=== PATIENT | male | born 1985 | race Caucasian/White ===

== ENCOUNTER 2018-07-04 14:59 | Observation (INO) | payer OTHER ==
[2018-07-04] MEDS ORDERED: Ondansetron 4 MG/2 ML SDV IVPUSH ONE (15:08)
[2018-07-04] MEDS ORDERED: Sodium Chloride 0.9% 1,000 ML IV ONE ×2 (15:08→15:44)
--- NOTE | 2018-07-04 15:09 | EDM.PDOC ---
ED HPI GENERAL MEDICAL PROBLEM - General Stated Complaint: HEAT EXPOSURE Time Seen by Provider: 07/04/18 15:08 Source of Information: Reports: Patient - History of Present Illness INITIAL COMMENTS - FREE TEXT/NARRATIVE: HISTORY AND PHYSICAL: History of present illness: [Patient was working in his backyard today, started feeling hot and weak he did soak in the child's pool, however he became lightheaded continued week went into home is diaphoretic his did put him in a cold shower and tub however symptoms persisted he presents as such No fever one episode of vomiting no chills diaphoretic on arrival no chest pain shortness of breath or palpitation no bowel or urine symptoms ] Review of systems: As per history of present illness and below otherwise all systems reviewed and negative. Past medical history: As per history of present illness and as reviewed below otherwise noncontributory. Surgical history: As per history of present illness and as reviewed below otherwise noncontributory. Social history: No reported history of drug or alcohol abuse. Family history: As per history of present illness and as reviewed below otherwise noncontributory. Physical exam: HEENT: Atraumatic, normocephalic, pupils reactive, negative for conjunctival pallor or scleral icterus, mucous membranes moist, throat clear, neck supple, nontender, trachea midline. Lungs: Clear to auscultation, breath sounds equal bilaterally, chest nontender. Heart: S1S2, regular, negative for clicks, rubs, or JVD. Abdomen: Soft, nondistended, nontender. Negative for masses or hepatosplenomegaly. Negative for costovertebral tenderness. Pelvis: Stable nontender. Genitourinary: Deferred. Rectal: Deferred. Extremities: Atraumatic, negative for cords or calf pain. Neurovascular unremarkable. Neuro: Awake, alert, oriented. Cranial nerves II through XII unremarkable. Cerebellum unremarkable. Motor and sensory unremarkable throughout. Exam nonfocal. Diagnostics: [CBC CMP troponin CPK CK-MB EKG Chest 1 view ]CT abdomen pelvis with contrast Therapeutics: normal saline bolus ]Normal saline with 40 mEq of potassium Impression: HypotensionLine hypokalemia Heat exhaustion versus heatstroke Rule out sepsis Definitive disposition and diagnosis as appropriate pending reevaluation and review of above. - Related Data Allergies Allergy/AdvReac Type Severity Reaction Status Date / Time No Known Allergies Allergy Verified 07/04/18 15:17 Home Meds: Home Meds . [No Known Home Meds] 07/04/18 [History] PARoxetine [Paxil] 10 mg PO DAILY 07/04/18 [History] ED ROS GENERAL - Review of Systems Review Of Systems: See Below ED EXAM, GENERAL - Physical Exam Exam: See Below Course - Vital Signs Last Recorded V/S: Last Vital Signs Temp 95.9 F 07/04/18 15:13 Pulse 53 L 07/04/18 15:42 Resp 16 07/04/18 15:42 BP 109/60 07/04/18 15:42 Pulse Ox 99 07/04/18 15:42 - Orders/Labs/Meds Orders: Active Orders 24 hr Category Date Time Status EKG Documentation Completion [RC] STAT Care 07/04/18 15:08 Active Abdomen Pelvis w Cont [CT] Stat Exams 07/04/18 15:28 Taken Chest 1V Frontal [CR] Stat Exams 07/04/18 15:08 Taken CULTURE BLOOD [BC] Stat Lab 07/04/18 15:20 Received CULTURE BLOOD [BC] Stat Lab 07/04/18 15:30 Received CULTURE URINE [RM] Stat Lab 07/04/18 15:11 Ordered DRUG SCREEN, URINE [URCHEM] Stat Lab 07/04/18 15:08 Ordered UA W/MICROSCOPIC [URIN] Stat Lab 07/04/18 15:07 Ordered Sodium Chloride 0.9% with KCl [Normal Saline with 40 Med 07/04/18 16:15 Active mEq KCl] 1,000 ml IV ASDIRECTED Blood Culture x2 Reflex Set [OM.PC] Stat Oth 07/04/18 15:11 Ordered Medication Orders Potassium Chloride/Sodium Chloride (Normal Saline With 40 Meq Kcl) 1,000 mls @ 150 mls/hr IV ASDIRECTED [facility] Last Admin: 07/04/18 16:17 Dose: 150 mls/hr Labs: Laboratory Tests 07/04/18 07/04/18 07/04/18 Range/Units 15:00 15:00 15:20 WBC 14.82 H (4.0-11.0) K/uL RBC 5.05 (4.50-5.90) M/uL Hgb 14.8 (13.0-17.0) g/dL Hct 42.8 (38.0-50.0) % MCV 84.8 (80.0-98.0) fL MCH 29.3 (27.0-32.0) pg MCHC 34.6 (31.0-37.0) g/dL RDW Std Deviation 39.7 (28.0-62.0) fl RDW Coeff of Rani 13 (11.0-15.0) % Plt Count 350 (150-400) K/uL MPV 9.40 (7.40-12.00) fL Neut % (Auto) 44.4 L (48.0-80.0) % Lymph % (Auto) 42.7 H (16.0-40.0) % [place] % (Auto) 8.8 (0.0-15.0) % Eos % (Auto) 3.8 (0.0-7.0) % Baso % (Auto) 0.3 (0.0-1.5) % Neut # (Auto) 6.6 H (1.4-5.7) K/uL Lymph # (Auto) 6.3 H (0.6-2.4) K/uL [place] # (Auto) 1.3 H (0.0-0.8) K/uL Eos # (Auto) 0.6 (0.0-0.7) K/uL Baso # (Auto) 0.0 (0.0-0.1) K/uL Nucleated RBC % 0.0 /100WBC Nucleated RBCs # 0 K/uL Lactate 5.6 H (0.20-2.00) mmol/L Sodium 143 (136-148) mmol/L Potassium 2.6 L (3.5-5.1) mmol/L Chloride 104 (98-107) mmol/L Carbon Dioxide 20.0 L (21.0-32.0) mmol/L BUN 12 (7.0-18.0) mg/dL Creatinine 1.1 (0.8-1.3) mg/dL Est Cr Clr Drug Dosing 107.78 mL/min Estimated GFR (MDRD) > 60.0 ml/min Glucose 160 H (74-106) mg/dL Calcium 9.3 (8.5-10.1) mg/dL Total Bilirubin 0.2 (0.2-1.0) mg/dL AST 16 (15-37) IU/L ALT 24 (14-63) IU/L Alkaline Phosphatase 62 (46-116) U/L Creatine Kinase 202 (26-308) U/L CK-MB (CK-2) 2.8 (0-3.6) ng/mL Troponin I < 0.050 (0.000-0.056) ng/mL Total Protein 8.2 (6.4-8.2) g/dL Albumin 4.0 (3.4-5.0) g/dL Globulin 4.2 H (2.0-3.5) g/dL Albumin/Globulin Ratio 1.0 L (1.3-2.8) Lipase 151 (73-393) U/L Meds: Medications Generic Name Dose Route Start Last Admin Trade Name Freq PRN Reason Stop Dose Admin Potassium Chloride/Sodium Chloride 1,000 mls @ 150 mls/hr 07/04/18 16:15 11/09 16:17 Normal Saline With 40 Meq Kcl IV 150 mls/hr ASDIRECTED [facility] Administration Discontinued Medications Generic Name Dose Route Start Last Admin Trade Name Freq PRN Reason Stop Dose Admin Sodium Chloride 1,000 mls @ 999 mls/hr 07/04/18 15:08 07/04/18 16:07 Normal Saline IV 07/04/18 16:08 999 mls/hr STAT ONE Infusion Piperacillin Sod/Tazobactam 50 mls @ 100 mls/hr 07/04/18 15:13 07/04/18 15:32 Sod 3.375 gm/ Sodium Chloride IV 07/04/18 15:42 100 mls/hr ONETIME ONE Administration Sodium Chloride 1,000 mls @ 999 mls/hr 07/04/18 15:44 07/04/18 17:02 Normal Saline IV 07/04/18 16:44 Not Given .Bolus ONE Iopamidol 100 ml 07/04/18 17:03 07/04/18 17:04 Isovue Multipack-370 (76%) IVPUSH 07/04/18 17:04 100 ml ONETIME ONE Administration Ondansetron HCl 8 mg 07/04/18 15:08 07/04/18 15:13 Zofran IVPUSH 07/04/18 15:09 8 mg ONETIME ONE Administration Departure - Departure Time of Disposition: 17:47 Disposition: Refer to Observation Condition: Fair Clinical Impression: Hypotension, Exhaustion due to exposure - Discharge Information Referrals: PCP,None [Primary Care Provider] - - My Orders Last 24 Hours: My Active Orders 07/04/18 15:07 UA W/MICROSCOPIC [URIN] Stat 07/04/18 15:08 EKG Documentation Completion [RC] STAT Chest 1V Frontal [CR] Stat DRUG SCREEN, URINE [URCHEM] Stat 07/04/18 15:11 CULTURE URINE [RM] Stat Blood Culture x2 Reflex Set [OM.PC] Stat 07/04/18 15:20 CULTURE BLOOD [BC] Stat 07/04/18 15:28 Abdomen Pelvis w Cont [CT] Stat 07/04/18 15:30 CULTURE BLOOD [BC] Stat 07/04/18 16:15 Sodium Chloride 0.9% with KCl [Normal Saline with 40 mEq KCl] 1,000 ml IV ASDIRECTED - Assessment/Plan Last 24 Hours: My Active Orders 07/04/18 15:07 UA W/MICROSCOPIC [URIN] Stat 07/04/18 15:08 EKG Documentation Completion [RC] STAT Chest 1V Frontal [CR] Stat DRUG SCREEN, URINE [URCHEM] Stat 07/04/18 15:11 CULTURE URINE [RM] Stat Blood Culture x2 Reflex Set [OM.PC] Stat 07/04/18 15:20 CULTURE BLOOD [BC] Stat 07/04/18 15:28 Abdomen Pelvis w Cont [CT] Stat 07/04/18 15:30 CULTURE BLOOD [BC] Stat 07/04/18 16:15 Sodium Chloride 0.9% with KCl [Normal Saline with 40 mEq KCl] 1,000 ml IV ASDIRECTED
[2018-07-04] MEDS ORDERED: Piperacillin/Tazobactam 3.375 GM in Sodium Chloride 0.9% 50 ML IV ONE (15:13)
[2018-07-04 15:43] LABS: CHLORIDE,CL 104 mmol/L (98-107); SODIUM,NA 143 mmol/L (136-148)
[2018-07-04] MEDS: Sodium Chloride 0.9% with KCl 1,000 ML IV SCH ×2 (16:17→23:23)
[2018-07-04] MEDS ORDERED: Iopamidol 755 MG/ML 200 ML Multipack Bottle IVPUSH ONE (17:03)
[2018-07-04] MEDS ORDERED: Morphine 10 MG/ML Syringe IVPUSH PRN (17:51)
[2018-07-04] MEDS ORDERED: Sodium Chloride 0.9% 10 ML Syringe FLUSH PRN (17:51)
[2018-07-04] MEDS ORDERED: Acetaminophen 325 MG Tab PO PRN (17:51)
[2018-07-04] MEDS ORDERED: Sodium Chloride 0.9% 2.5 ML Syringe FLUSH PRN (17:51)
[2018-07-04] MEDS ORDERED: Ondansetron 4 MG/2 ML SDV IVPUSH PRN (17:51)
[2018-07-04] MEDS ORDERED: Enoxaparin 40 MG/0.4 ML Syringe SUBCUT SCH (18:00)
--- NOTE | 2018-07-04 18:00 | PCM.HP ---
H&P History of Present Illness - General Date of Service: 07/04/18 Admit Problem/Dx: Admission Diagnosis/Problem Admission Diagnosis/Problem Hypotension - History of Present Illness Initial Comments - Free Text/Narative: 32-year-old male being admitted secondary to heat exhaustion versus possible sepsis. Patient states that him and his girlfriend were in the backyard in the pool, he was drinking alcohol and after some time he told his he was starting to feel lightheaded, dizzy, stating that he had heart palpitations and as if he had a numbness and tingling in his extremities. Patient has significant other 1 in side and he took a cold shower which did not alleviate his symptoms that he presented to the ED where he was found to be hypotensive, with elevated lactic acid level, a hypokalemia of 2.6 with no elevation of creatinine kinase, and a leukocytosis. Chest x-ray and CT abdomen are both negative, we are waiting on the UA results. - Related Data Allergies/Adverse Reactions: Allergies Allergy/AdvReac Type Severity Reaction Status Date / Time No Known Allergies Allergy Verified 07/04/18 15:17 Home Medications: Home Meds . [No Known Home Meds] 07/04/18 [History] PARoxetine [Paxil] 10 mg PO DAILY 07/04/18 [History] Past Medical History Psychiatric History: Reports: Anxiety Social & Family History - Family History Family Medical History: Noncontributory - Tobacco Use Smoking Status *Q: Never Smoker - Caffeine Use Caffeine Use: Reports: Coffee - Recreational Drug Use Recreational Drug Use: No H&P Review of Systems - Review of Systems: Review Of Systems: ROS reveals no pertinent complaints other than HPI. Exam - Exam Exam: See Below - Vital Signs Vital Signs: Last Vital Signs Temp 35.5 C 07/04/18 15:13 Pulse 53 L 07/04/18 15:42 Resp 16 07/04/18 15:42 BP 109/60 07/04/18 15:42 Pulse Ox 99 07/04/18 15:42 Weight: 126.9 kg - Exam General: Alert, Oriented, Mild Distress Lungs: Clear to Auscultation, Normal Respiratory Effort, Other (Shallow breaths) Extremities: Normal Inspection - Patient Data Lab Results Last 24 hrs: Laboratory Results - last 24 hr 07/04/18 07/04/18 07/04/18 Range/Units 15:00 15:00 15:20 WBC 14.82 H (4.0-11.0) K/uL RBC 5.05 (4.50-5.90) M/uL Hgb 14.8 (13.0-17.0) g/dL Hct 42.8 (38.0-50.0) % MCV 84.8 (80.0-98.0) fL MCH 29.3 (27.0-32.0) pg MCHC 34.6 (31.0-37.0) g/dL RDW Std Deviation 39.7 (28.0-62.0) fl RDW Coeff of Rani 13 (11.0-15.0) % Plt Count 350 (150-400) K/uL MPV 9.40 (7.40-12.00) fL Neut % (Auto) 44.4 L (48.0-80.0) % Lymph % (Auto) 42.7 H (16.0-40.0) % [place] % (Auto) 8.8 (0.0-15.0) % Eos % (Auto) 3.8 (0.0-7.0) % Baso % (Auto) 0.3 (0.0-1.5) % Neut # (Auto) 6.6 H (1.4-5.7) K/uL Lymph # (Auto) 6.3 H (0.6-2.4) K/uL [place] # (Auto) 1.3 H (0.0-0.8) K/uL Eos # (Auto) 0.6 (0.0-0.7) K/uL Baso # (Auto) 0.0 (0.0-0.1) K/uL Nucleated RBC % 0.0 /100WBC Nucleated RBCs # 0 K/uL Lactate 5.6 H (0.20-2.00) mmol/L Sodium 143 (136-148) mmol/L Potassium 2.6 L (3.5-5.1) mmol/L Chloride 104 (98-107) mmol/L Carbon Dioxide 20.0 L (21.0-32.0) mmol/L BUN 12 (7.0-18.0) mg/dL Creatinine 1.1 (0.8-1.3) mg/dL Est Cr Clr Drug Dosing 107.78 mL/min Estimated GFR (MDRD) > 60.0 ml/min Glucose 160 H (74-106) mg/dL Calcium 9.3 (8.5-10.1) mg/dL Total Bilirubin 0.2 (0.2-1.0) mg/dL AST 16 (15-37) IU/L ALT 24 (14-63) IU/L Alkaline Phosphatase 62 (46-116) U/L Creatine Kinase 202 (26-308) U/L CK-MB (CK-2) 2.8 (0-3.6) ng/mL Troponin I < 0.050 (0.000-0.056) ng/mL Total Protein 8.2 (6.4-8.2) g/dL Albumin 4.0 (3.4-5.0) g/dL Globulin 4.2 H (2.0-3.5) g/dL Albumin/Globulin Ratio 1.0 L (1.3-2.8) Lipase 151 (73-393) U/L Result Diagrams: 07/04/18 15:00 07/04/18 15:00 - Problem List (1) UTI (urinary tract infection) SNOMED Code(s): 49435371 ICD Code: N39.0 - URINARY TRACT INFECTION, SITE NOT SPECIFIED Status: Acute Current Visit: Yes (2) Exhaustion due to exposure SNOMED Code(s): 31096468 ICD Code: T73.2XXA - EXHAUSTION DUE TO EXPOSURE, INITIAL ENCOUNTER Status: Acute Current Visit: Yes (3) Hypotension SNOMED Code(s): 86349136 ICD Code: I95.9 - HYPOTENSION, UNSPECIFIED Status: Acute Current Visit: Yes Problem List Initiated/Reviewed/Updated: Yes Orders Last 24hrs: Active Orders 24 hr Category Date Time Status Admission Status [Patient Status] [ADT] Stat ADT 07/04/18 17:48 Active Cardiac Monitoring [RC] CONTINUOUS Care 07/04/18 17:51 Ordered EKG Documentation Completion [RC] STAT Care 07/04/18 15:08 Active Height and Weight [RC] UPON Care 07/04/18 17:51 Ordered Intake and Output [RC] QSHIFT Care 07/04/18 17:51 Ordered Oxygen Therapy [RC] PRN Care 07/04/18 17:51 Ordered Up With Assistance [RC] ASDIRECTED Care 07/04/18 17:51 Ordered VTE/DVT Education [RC] PER UNIT ROUTINE Care 07/04/18 17:51 Ordered Vital Signs [RC] Q4H Care 07/04/18 17:51 Ordered Regular Diet [DIET] Diet 07/04/18 Breakfast Ordered Abdomen Pelvis w Cont [CT] Stat Exams 07/04/18 15:28 Taken Chest 1V Frontal [CR] Stat Exams 07/04/18 15:08 Taken CBC WITH AUTO DIFF [HEME] AM Lab 07/05/18 05:11 Ordered COMPREHENSIVE METABOLIC PN,CMP [CHEM] AM Lab 07/05/18 05:11 Ordered CULTURE BLOOD [BC] Stat Lab 07/04/18 15:20 Received CULTURE BLOOD [BC] Stat Lab 07/04/18 15:30 Received CULTURE URINE [RM] Stat Lab 07/04/18 15:11 Ordered DRUG SCREEN, URINE [URCHEM] Stat Lab 07/04/18 15:08 Ordered UA W/MICROSCOPIC [URIN] Stat Lab 07/04/18 15:07 Ordered Acetaminophen [Tylenol] Med 07/04/18 17:51 Ordered 650 mg PO Q4H PRN Enoxaparin [Lovenox] Med 07/04/18 18:00 Ordered 40 mg SUBCUT Q24H Morphine Med 07/04/18 17:51 Ordered 2 mg IVPUSH Q2H PRN Ondansetron [Zofran] Med 07/04/18 17:51 Ordered 4 mg IVPUSH Q4H PRN Potassium Chloride 40 meq Med 07/04/18 18:00 Ordered Sodium Chloride 0.9% [Normal Saline] 1,000 ml IV ASDIRECTED Sodium Chloride 0.9% [Saline Flush] Med 07/04/18 17:51 Ordered 10 ml FLUSH ASDIRECTED PRN Sodium Chloride 0.9% [Saline Flush] Med 07/04/18 17:51 Ordered 2.5 ml FLUSH ASDIRECTED PRN Sodium Chloride 0.9% with KCl [Normal Saline with 40 Med 07/04/18 16:15 Active mEq KCl] 1,000 ml IV ASDIRECTED Blood Culture x2 Reflex Set [OM.PC] Stat Oth 07/04/18 15:11 Ordered Peripheral IV Insertion Adult [OM.PC] Routine Oth 07/04/18 17:51 Ordered Saline Lock Insert [OM.PC] Routine Oth 07/04/18 17:51 Ordered Sequential Compression Device [OM.PC] Per Unit Routine Oth 07/04/18 17:51 Ordered Resuscitation Status Routine Resus Stat 07/04/18 17:51 Ordered Medication Orders Potassium Chloride/Sodium Chloride (Normal Saline With 40 Meq Kcl) 1,000 mls @ 150 mls/hr IV ASDIRECTED [facility] Last Admin: 07/04/18 16:17 Dose: 150 mls/hr Assessment/Plan Comment:: 32-year-old male admitted for heat exhaustion with elevated lactic acid level in the setting of a UA indicating a possible urinary tract infection. For heat exhaustion -IV hydration with repletion of potassium for the patient's hypokalemia, cardiac monitoring -Elevated lactic acid level sepsis versus heat exhaustion -Patient does have an mildly dirty UA, shall start ceftriaxone, trend lactic acid levels every 4 hours, ensure patient is hemodynamically stable and continue to monitor.
[2018-07-04] MEDS ORDERED: cefTRIAXone 2 GM in Premix Bag 1 BAG IV SCH (18:45)
[2018-07-04] MEDS ORDERED: cefTRIAXone 1 GM in Premix Bag 1 BAG IV SCH (19:00)
[2018-07-05 06:34] LABS: CHLORIDE,CL 111 mmol/L (98-107); SODIUM,NA 145 mmol/L (136-148)
[2018-07-05] MEDS ORDERED: cefTRIAXone 1 GM in Sodium Chloride 0.9% 50 ML IV SCH ×2 (07:15→19:00)
--- NOTE | 2018-07-05 10:11 | CR ---
EXAM DATE: 07/04/18 PATIENT'S AGE: 32 Patient: AARON GAMBLE Facility: [place], [place] Site . Site : 1985 Study: XRay Chest [id number] 5:17:48 PM Ordering Physician: Joshua Dunaway Final Report: INDICATION: Heat exposure. TECHNIQUE: AP portable chest x-ray. FINDINGS: The heart is globular in shape and mildly enlarged. Such an appearance of the heart can also be seen related to pericardial effusion in addition to mild cardiac prominence. Lungs are clear. Shallow inspiration. Chest otherwise negative. Dictated by Gilberto German MD @ Jul 04 2018 5:19PM (Electronic Signature) Report Signed by Proxy. YANE
--- NOTE | 2018-07-05 10:12 | CT ---
EXAM DATE: 07/04/18 PATIENT'S AGE: 32 Patient: AARON GAMBLE Facility: [place], [place] Site . Site : 1985 Study: CT Abdomen/Pelvis [id number]/[id number] 5:20:08 PM Ordering Physician: Joshua Dunaway Final Report: INDICATION: Heat exposure. Nauseated. Diaphoretic. TECHNIQUE: CT of abdomen and pelvis performed after IV injection of 100 mL of Isovue-370. FINDINGS: Tiny bone islands involving pelvic bones. Minimal atelectasis in the dependent lung bases. Appendix is normal. Few mildly prominent right abdominal mesenteric lymph nodes clustered and are likely inflammatory. Small lymph nodes in the abdominal retroperitoneum are not enlarged by CT criteria. Remainder negative. Impression : No acute disease in abdomen or pelvis. Chronic findings as above. Please note that all CT scans at this facility use dose modulation, iterative reconstruction, and/or weight-based dosing when appropriate to reduce radiation dose to as low as reasonably achievable. Dictated by Gilberto German MD @ Jul 04 2018 5:21PM (Electronic Signature) Report Signed by Proxy. [facility]
--- NOTE | 2018-07-05 13:46 | PCM.DCSUM1 ---
Discharge Summary - Discharge Data Discharge Date: 07/05/18 Discharge Disposition: Home, Self-Care 01 Condition: Stable - Patient Summary/Data Hospital Course: 32-year-old male who presented with dizziness, and palpitations. He had peen drinking alcohol in a pool outside during a hot day. A cold bath did not aleviat his symptoms. In the ED he was found to be hypotensive, with elevated lactic acid level, a hypokalemia of 2.6 with no elevation of creatinine kinase, and a leukocytosis. Chest x-ray and CT abdomen are both negative. He was admitted for heat exhaustion versus possible sepsis. UA showed possible UTI so he was treated with Rocephin. He was given IV fluids with potassium overnight with resolution of his elevated lactic acid and leukocytosis. He was discharged home to have follow up with. Simon Alexandra. - Patient Instructions Diet: Usual Diet as Tolerated - Discharge Plan Prescriptions/Med Rec: cephALEXin [Keflex] 500 mg PO Q12H #10 cap Home Medications: Home Meds PARoxetine [Paxil] 10 mg PO DAILY 07/04/18 [History] cephALEXin [Keflex] 500 mg PO Q12H #10 cap 07/05/18 [Rx] Patient Handouts: Hypotension, [id number], Hypokalemia, Urinary Tract Infection, Adult Forms: ED Department Discharge Referrals: Amber Alexandra NP [Nurse Practitioner] - 07/12/18 9:45 am PCP,None [Primary Care Provider] - - Patient Data Vitals - Most Recent: Last Vital Signs Temp 37.0 C 07/05/18 12:00 Pulse 59 L 07/05/18 04:01 Resp 18 07/05/18 12:00 BP 131/63 07/05/18 12:00 Pulse Ox 96 07/05/18 12:00 Weight - Most Recent: 136.616 kg I&O - Last 24 hours: Intake & Output 07/04/18 07/05/18 07/05/18 22:59 06:59 14:59 Intake Total 1100 2950 640 Output Total 1000 Balance 1100 1950 640 Lab Results - Last 24 hrs: Laboratory Results - last 24 hr 07/04/18 07/04/18 07/04/18 Range/Units 15:00 15:00 15:00 WBC 14.82 H (4.0-11.0) K/uL RBC 5.05 (4.50-5.90) M/uL Hgb 14.8 (13.0-17.0) g/dL Hct 42.8 (38.0-50.0) % MCV 84.8 (80.0-98.0) fL MCH 29.3 (27.0-32.0) pg MCHC 34.6 (31.0-37.0) g/dL RDW Std Deviation 39.7 (28.0-62.0) fl RDW Coeff of Rani 13 (11.0-15.0) % Plt Count 350 (150-400) K/uL MPV 9.40 (7.40-12.00) fL Neut % (Auto) 44.4 L (48.0-80.0) % Lymph % (Auto) 42.7 H (16.0-40.0) % [place] % (Auto) 8.8 (0.0-15.0) % Eos % (Auto) 3.8 (0.0-7.0) % Baso % (Auto) 0.3 (0.0-1.5) % Neut # (Auto) 6.6 H (1.4-5.7) K/uL Lymph # (Auto) 6.3 H (0.6-2.4) K/uL [place] # (Auto) 1.3 H (0.0-0.8) K/uL Eos # (Auto) 0.6 (0.0-0.7) K/uL Baso # (Auto) 0.0 (0.0-0.1) K/uL Nucleated RBC % 0.0 /100WBC Nucleated RBCs # 0 K/uL Lactate (0.20-2.00) mmol/L Sodium 143 (136-148) mmol/L Potassium 2.6 L (3.5-5.1) mmol/L Chloride 104 (98-107) mmol/L Carbon Dioxide 20.0 L (21.0-32.0) mmol/L BUN 12 (7.0-18.0) mg/dL Creatinine 1.1 (0.8-1.3) mg/dL Est Cr Clr Drug Dosing 107.78 mL/min Estimated GFR (MDRD) > 60.0 ml/min Glucose 160 H (74-106) mg/dL Calcium 9.3 (8.5-10.1) mg/dL Magnesium 1.9 (1.8-2.4) mg/dL Total Bilirubin 0.2 (0.2-1.0) mg/dL AST 16 (15-37) IU/L ALT 24 (14-63) IU/L Alkaline Phosphatase 62 (46-116) U/L Creatine Kinase 202 (26-308) U/L CK-MB (CK-2) 2.8 (0-3.6) ng/mL Troponin I < 0.050 (0.000-0.056) ng/mL Total Protein 8.2 (6.4-8.2) g/dL Albumin 4.0 (3.4-5.0) g/dL Globulin 4.2 H (2.0-3.5) g/dL Albumin/Globulin Ratio 1.0 L (1.3-2.8) Lipase 151 (73-393) U/L Urine Color Urine Appearance Urine pH (5.0-8.0) Ur Specific [place] (1.001-1.035) Urine Protein (NEGATIVE) mg/dL Urine Glucose (UA) (NEGATIVE) mg/dL Urine Ketones (NEGATIVE) mg/dL Urine Occult Blood (NEGATIVE) Urine Nitrite (NEGATIVE) Urine Bilirubin (NEGATIVE) Urine Urobilinogen (<2.0) EU/dL Ur Leukocyte Esterase (NEGATIVE) Urine RBC (0-2/HPF) Urine WBC (0-5/HPF) Ur Epithelial Cells (NONE-FEW) Urine Bacteria (NEGATIVE) Urine Opiates Screen (NEGATIVE) Ur Oxycodone Screen (NEGATIVE) Urine Methadone Screen (NEGATIVE) Ur Barbiturates Screen (NEGATIVE) Ur Phencyclidine Scrn (NEGATIVE) Ur Amphetamine Screen (NEGATIVE) U Methamphetamines Scrn (NEGATIVE) U Benzodiazepines Scrn (NEGATIVE) U Cocaine Metab Screen (NEGATIVE) U Marijuana (THC) Screen (NEGATIVE) 07/04/18 07/04/18 07/04/18 Range/Units 15:20 18:05 18:05 WBC (4.0-11.0) K/uL RBC (4.50-5.90) M/uL Hgb (13.0-17.0) g/dL Hct (38.0-50.0) % MCV (80.0-98.0) fL MCH (27.0-32.0) pg MCHC (31.0-37.0) g/dL RDW Std Deviation (28.0-62.0) fl RDW Coeff of Rani (11.0-15.0) % Plt Count (150-400) K/uL MPV (7.40-12.00) fL Neut % (Auto) (48.0-80.0) % Lymph % (Auto) (16.0-40.0) % [place] % (Auto) (0.0-15.0) % Eos % (Auto) (0.0-7.0) % Baso % (Auto) (0.0-1.5) % Neut # (Auto) (1.4-5.7) K/uL Lymph # (Auto) (0.6-2.4) K/uL [place] # (Auto) (0.0-0.8) K/uL Eos # (Auto) (0.0-0.7) K/uL Baso # (Auto) (0.0-0.1) K/uL Nucleated RBC % /100WBC Nucleated RBCs # K/uL Lactate 5.6 H (0.20-2.00) mmol/L Sodium (136-148) mmol/L Potassium (3.5-5.1) mmol/L Chloride (98-107) mmol/L Carbon Dioxide (21.0-32.0) mmol/L BUN (7.0-18.0) mg/dL Creatinine (0.8-1.3) mg/dL Est Cr Clr Drug Dosing mL/min Estimated GFR (MDRD) ml/min Glucose (74-106) mg/dL Calcium (8.5-10.1) mg/dL Magnesium (1.8-2.4) mg/dL Total Bilirubin (0.2-1.0) mg/dL AST (15-37) IU/L ALT (14-63) IU/L Alkaline Phosphatase (46-116) U/L Creatine Kinase (26-308) U/L CK-MB (CK-2) (0-3.6) ng/mL Troponin I (0.000-0.056) ng/mL Total Protein (6.4-8.2) g/dL Albumin (3.4-5.0) g/dL Globulin (2.0-3.5) g/dL Albumin/Globulin Ratio (1.3-2.8) Lipase (73-393) U/L Urine Color YELLOW Urine Appearance HAZY Urine pH 5.5 (5.0-8.0) Ur Specific [place] 1.015 (1.001-1.035) Urine Protein NEGATIVE (NEGATIVE) mg/dL Urine Glucose (UA) NEGATIVE (NEGATIVE) mg/dL Urine Ketones NEGATIVE (NEGATIVE) mg/dL Urine Occult Blood NEGATIVE (NEGATIVE) Urine Nitrite NEGATIVE (NEGATIVE) Urine Bilirubin NEGATIVE (NEGATIVE) Urine Urobilinogen 0.2 (<2.0) EU/dL Ur Leukocyte Esterase SMALL (NEGATIVE) Urine RBC 0-2 (0-2/HPF) Urine WBC 3-6 (0-5/HPF) Ur Epithelial Cells OCCASIONAL (NONE-FEW) Urine Bacteria FEW (NEGATIVE) Urine Opiates Screen NEGATIVE (NEGATIVE) Ur Oxycodone Screen NEGATIVE (NEGATIVE) Urine Methadone Screen NEGATIVE (NEGATIVE) Ur Barbiturates Screen NEGATIVE (NEGATIVE) Ur Phencyclidine Scrn NEGATIVE (NEGATIVE) Ur Amphetamine Screen NEGATIVE (NEGATIVE) U Methamphetamines Scrn NEGATIVE (NEGATIVE) U Benzodiazepines Scrn NEGATIVE (NEGATIVE) U Cocaine Metab Screen NEGATIVE (NEGATIVE) U Marijuana (THC) Screen POSITIVE (NEGATIVE) 07/04/18 07/05/18 07/05/18 Range/Units 21:26 01:38 06:01 WBC 10.92 (4.0-11.0) K/uL RBC 4.27 L (4.50-5.90) M/uL Hgb 12.4 L (13.0-17.0) g/dL Hct 37.4 L (38.0-50.0) % MCV 87.6 (80.0-98.0) fL MCH 29.0 (27.0-32.0) pg MCHC 33.2 (31.0-37.0) g/dL RDW Std Deviation 42.9 (28.0-62.0) fl RDW Coeff of Rani 14 (11.0-15.0) % Plt Count 242 (150-400) K/uL MPV 9.30 (7.40-12.00) fL Neut % (Auto) 55.9 (48.0-80.0) % Lymph % (Auto) 30.3 (16.0-40.0) % [place] % (Auto) 10.4 (0.0-15.0) % Eos % (Auto) 3.2 (0.0-7.0) % Baso % (Auto) 0.2 (0.0-1.5) % Neut # (Auto) 6.1 H (1.4-5.7) K/uL Lymph # (Auto) 3.3 H (0.6-2.4) K/uL [place] # (Auto) 1.1 H (0.0-0.8) K/uL Eos # (Auto) 0.4 (0.0-0.7) K/uL Baso # (Auto) 0.0 (0.0-0.1) K/uL Nucleated RBC % 0.0 /100WBC Nucleated RBCs # 0 K/uL Lactate 3.0 H 1.5 (0.20-2.00) mmol/L Sodium (136-148) mmol/L Potassium (3.5-5.1) mmol/L Chloride (98-107) mmol/L Carbon Dioxide (21.0-32.0) mmol/L BUN (7.0-18.0) mg/dL Creatinine (0.8-1.3) mg/dL Est Cr Clr Drug Dosing mL/min Estimated GFR (MDRD) ml/min Glucose (74-106) mg/dL Calcium (8.5-10.1) mg/dL Magnesium (1.8-2.4) mg/dL Total Bilirubin (0.2-1.0) mg/dL AST (15-37) IU/L ALT (14-63) IU/L Alkaline Phosphatase (46-116) U/L Creatine Kinase (26-308) U/L CK-MB (CK-2) (0-3.6) ng/mL Troponin I (0.000-0.056) ng/mL Total Protein (6.4-8.2) g/dL Albumin (3.4-5.0) g/dL Globulin (2.0-3.5) g/dL Albumin/Globulin Ratio (1.3-2.8) Lipase (73-393) U/L Urine Color Urine Appearance Urine pH (5.0-8.0) Ur Specific [place] (1.001-1.035) Urine Protein (NEGATIVE) mg/dL Urine Glucose (UA) (NEGATIVE) mg/dL Urine Ketones (NEGATIVE) mg/dL Urine Occult Blood (NEGATIVE) Urine Nitrite (NEGATIVE) Urine Bilirubin (NEGATIVE) Urine Urobilinogen (<2.0) EU/dL Ur Leukocyte Esterase (NEGATIVE) Urine RBC (0-2/HPF) Urine WBC (0-5/HPF) Ur Epithelial Cells (NONE-FEW) Urine Bacteria (NEGATIVE) Urine Opiates Screen (NEGATIVE) Ur Oxycodone Screen (NEGATIVE) Urine Methadone Screen (NEGATIVE) Ur Barbiturates Screen (NEGATIVE) Ur Phencyclidine Scrn (NEGATIVE) Ur Amphetamine Screen (NEGATIVE) U Methamphetamines Scrn (NEGATIVE) U Benzodiazepines Scrn (NEGATIVE) U Cocaine Metab Screen (NEGATIVE) U Marijuana (THC) Screen (NEGATIVE) 07/05/18 Range/Units 06:01 WBC (4.0-11.0) K/uL RBC (4.50-5.90) M/uL Hgb (13.0-17.0) g/dL Hct (38.0-50.0) % MCV (80.0-98.0) fL MCH (27.0-32.0) pg MCHC (31.0-37.0) g/dL RDW Std Deviation (28.0-62.0) fl RDW Coeff of Rani (11.0-15.0) % Plt Count (150-400) K/uL MPV (7.40-12.00) fL Neut % (Auto) (48.0-80.0) % Lymph % (Auto) (16.0-40.0) % [place] % (Auto) (0.0-15.0) % Eos % (Auto) (0.0-7.0) % Baso % (Auto) (0.0-1.5) % Neut # (Auto) (1.4-5.7) K/uL Lymph # (Auto) (0.6-2.4) K/uL [place] # (Auto) (0.0-0.8) K/uL Eos # (Auto) (0.0-0.7) K/uL Baso # (Auto) (0.0-0.1) K/uL Nucleated RBC % /100WBC Nucleated RBCs # K/uL Lactate (0.20-2.00) mmol/L Sodium 145 (136-148) mmol/L Potassium 4.3 (3.5-5.1) mmol/L Chloride 111 H (98-107) mmol/L Carbon Dioxide 28.1 (21.0-32.0) mmol/L BUN 14 (7.0-18.0) mg/dL Creatinine 0.9 (0.8-1.3) mg/dL Est Cr Clr Drug Dosing 139.54 mL/min Estimated GFR (MDRD) > 60.0 ml/min Glucose 106 (74-106) mg/dL Calcium 8.5 (8.5-10.1) mg/dL Magnesium 1.8 (1.8-2.4) mg/dL Total Bilirubin 0.2 (0.2-1.0) mg/dL AST 12 L (15-37) IU/L ALT 21 (14-63) IU/L Alkaline Phosphatase 52 (46-116) U/L Creatine Kinase (26-308) U/L CK-MB (CK-2) (0-3.6) ng/mL Troponin I (0.000-0.056) ng/mL Total Protein 6.6 (6.4-8.2) g/dL Albumin 3.1 L (3.4-5.0) g/dL Globulin 3.5 (2.0-3.5) g/dL Albumin/Globulin Ratio 0.9 L (1.3-2.8) Lipase (73-393) U/L Urine Color Urine Appearance Urine pH (5.0-8.0) Ur Specific [place] (1.001-1.035) Urine Protein (NEGATIVE) mg/dL Urine Glucose (UA) (NEGATIVE) mg/dL Urine Ketones (NEGATIVE) mg/dL Urine Occult Blood (NEGATIVE) Urine Nitrite (NEGATIVE) Urine Bilirubin (NEGATIVE) Urine Urobilinogen (<2.0) EU/dL Ur Leukocyte Esterase (NEGATIVE) Urine RBC (0-2/HPF) Urine WBC (0-5/HPF) Ur Epithelial Cells (NONE-FEW) Urine Bacteria (NEGATIVE) Urine Opiates Screen (NEGATIVE) Ur Oxycodone Screen (NEGATIVE) Urine Methadone Screen (NEGATIVE) Ur Barbiturates Screen (NEGATIVE) Ur Phencyclidine Scrn (NEGATIVE) Ur Amphetamine Screen (NEGATIVE) U Methamphetamines Scrn (NEGATIVE) U Benzodiazepines Scrn (NEGATIVE) U Cocaine Metab Screen (NEGATIVE) U Marijuana (THC) Screen (NEGATIVE) Med Orders - Current: Current Medications Discontinued Medications Acetaminophen (Tylenol) 650 mg PO Q4H PRN PRN Reason: Pain (Mild 1-3)/fever Enoxaparin Sodium (Lovenox) 40 mg SUBCUT Q24H [facility] Last Admin: 07/04/18 19:12 Dose: 40 mg Sodium Chloride (Normal Saline) 1,000 mls @ 999 mls/hr IV STAT ONE Stop: 07/04/18 16:08 Last Infusion: 07/04/18 16:07 Dose: 999 mls/hr Piperacillin Sod/Tazobactam (Sod 3.375 gm/ Sodium Chloride) 50 mls @ 100 mls/ hr IV ONETIME ONE Stop: 07/04/18 15:42 Last Admin: 07/04/18 15:32 Dose: 100 mls/hr Sodium Chloride (Normal Saline) 1,000 mls @ 999 mls/hr IV .Bolus ONE Stop: 07/04/18 16:44 Last Admin: 07/04/18 17:02 Dose: Not Given Potassium Chloride/Sodium Chloride (Normal Saline With 40 Meq Kcl) 1,000 mls @ 150 mls/hr IV ASDIRECTED [facility] Last Admin: 07/04/18 23:23 Dose: 150 mls/hr Potassium Chloride 40 meq/ (Sodium Chloride) 1,020 mls @ 150 mls/hr IV ASDIRECTED [facility] Ceftriaxone Sodium/Dextrose 2 (gm/ Premix) 50 mls @ 100 mls/hr IV Q24H [facility] Ceftriaxone Sodium/Dextrose 1 (gm/ Premix) 50 mls @ 100 mls/hr IV Q24H [facility] Last Admin: 07/04/18 19:18 Dose: 100 mls/hr Ceftriaxone Sodium 1 gm/ (Sodium Chloride) 50 mls @ 100 mls/hr IV Q24H [facility] Ceftriaxone Sodium 1 gm/ (Sodium Chloride) 50 mls @ 100 mls/hr IV Q24H [facility] Iopamidol (Isovue Multipack-370 (76%)) 100 ml IVPUSH ONETIME ONE Stop: 07/04/18 17:04 Last Admin: 07/04/18 17:04 Dose: 100 ml Morphine Sulfate (Morphine) 2 mg IVPUSH Q2H PRN PRN Reason: Pain (severe 7-10) Stop: 07/05/18 17:53 Ondansetron HCl (Zofran) 8 mg IVPUSH ONETIME ONE Stop: 07/04/18 15:09 Last Admin: 07/04/18 15:13 Dose: 8 mg Ondansetron HCl (Zofran) 4 mg IVPUSH Q4H PRN PRN Reason: Nausea/Vomiting Sodium Chloride (Saline Flush) 10 ml FLUSH ASDIRECTED PRN PRN Reason: Keep Vein Open Sodium Chloride (Saline Flush) 2.5 ml FLUSH ASDIRECTED PRN PRN Reason: Keep Vein Open
== END 2018-07-05 12:29 | disposition home or self-care (01) ==
LOC: MW.ED 14:59 → MW.ICU 17:48
PROVIDERS: ADMIT Internal Medicine; ATTEND Internal Medicine
DX: T73.2XXA Exhaustion due to exposure, initial encounter (principal); I95.9 Hypotension, unspecified; N39.0 Urinary tract infection, site not specified; R00.2 Palpitations; E87.6 Hypokalemia
CPT/HCPCS: 36415; 71045; 74177; 80053; 80305; 81001; 82550; 82553; 83605; 83690; 83735; 84484; 85025; 87040; 87086; 93005; 96361; 96365; 96367; 96372; 96375; 99285; G0378; J0696; J1650; J2405; J2543; J3480; J7040; J7050; Q9967; 99283